=== PATIENT | female | born 1980 | race Two or more races ===

== ENCOUNTER 2021-08-17 17:29 | Emergency (ER) | payer OTHER ==
[~2021-08-17] VITALS: Ht 154.9 cm; Wt 103.4 kg
[2021-08-17] MEDS ORDERED: COZAAR100 MG PO (17:41)
[2021-08-17] MEDS ORDERED: HYDROCHLOROTHIA25 MG PO (17:42)
[2021-08-17] MEDS ORDERED: GLUMETZA500 MG PO (17:42)
[2021-08-17] MEDS ORDERED: NORVASC5 MG PO (17:42)
== END 2021-08-17 19:08 | disposition home or self-care (01) ==
LOC: ER 17:29
DX: B34.9 Viral infection, unspecified (principal)